=== PATIENT | female | born 1930 | race Caucasian/White ===

== ENCOUNTER → 2016-12-01 | Outpatient (CLI) | payer OTHER, MEDICAID | LOC: BHFA 13:00 | PROVIDERS: ATTEND Internal Medicine Cardiovascular Disease | DX: R00.2 Palpitations (principal) ==

== ENCOUNTER → 2016-12-22 | Outpatient (CLI) | payer OTHER, MEDICAID | LOC: BMCIMAGING 16:29 | PROVIDERS: ATTEND Internal Medicine | DX: J44.9 Chronic obstructive pulmonary disease, unspecified (principal); Q79.1 Other congenital malformations of diaphragm; J98.4 Other disorders of lung | CPT/HCPCS: G0463-PO ==

== ENCOUNTER → 2017-02-09 | Outpatient (CLI) | payer OTHER, MEDICAID | LOC: BHFA 14:00 | PROVIDERS: ATTEND Internal Medicine Cardiovascular Disease | DX: I49.3 Ventricular premature depolarization (principal) ==

== ENCOUNTER → 2017-02-10 | Outpatient (CLI) | payer OTHER, MEDICAID | LOC: BHFA 10:00 | PROVIDERS: ATTEND Internal Medicine Cardiovascular Disease | DX: R60.9 Edema, unspecified (principal); I49.3 Ventricular premature depolarization ==

== ENCOUNTER → 2017-02-15 | Outpatient (CLI) | payer OTHER, MEDICAID | LOC: FIMAGING 14:29 | PROVIDERS: ATTEND Internal Medicine Cardiovascular Disease | DX: M71.22 Synovial cyst of popliteal space [Baker], left knee (principal); M71.21 Synovial cyst of popliteal space [Baker], right knee ==

== ENCOUNTER → 2017-02-22 | Outpatient (CLI) | payer OTHER, MEDICAID | LOC: FIMAGING 14:57 | PROVIDERS: ATTEND Internal Medicine | DX: Z12.31 Encounter for screening mammogram for malignant neoplasm of breast (principal); Z80.3 Family history of malignant neoplasm of breast | CPT/HCPCS: G0202 ==

== ENCOUNTER → 2017-02-24 | Outpatient (CLI) | payer OTHER, MEDICAID ==
[~2017-02-24] MED LIST: IOPAMIDOL (ISOVUE-300) 100 ML BTL ONE
== END ==
LOC: FIMAGING 16:23
PROVIDERS: ATTEND Physician Assistant Medical
DX: R31.0 Gross hematuria (principal); N28.1 Cyst of kidney, acquired; K83.8 Other specified diseases of biliary tract
CPT/HCPCS: 74178; Q9967

== ENCOUNTER 2017-09-15 13:09 | Day surgery (SDC) | payer OTHER, MEDICAID ==
[2017-09-15] MEDS ORDERED: GLUCAGON HCL 1 MG VIAL IVP ONE (13:29)
--- NOTE | 2017-09-15 13:32 | EDPHY ---
H & P Time Seen by Provider: 09/15/17 13:24 HPI/ROS: CHIEF COMPLAINT: Chicken in the throat HISTORY OF PRESENT ILLNESS: History of previous esophageal stricture with dilatation last 11/03/[address] Jordan. Patient was eating chicken today at 11: 00 a.m. And felt it get stuck in her throat. She reports dyspnea under cricoid as the area of sensation of foreign body. She can't swallow her saliva. Not associated with coughing or shortness of breath. Unable to swallow at all. Symptoms severe. REVIEW OF SYSTEMS: Eye: no change in vision ENT: no sore throat Cardiac: no chest pain or syncope Pulmonary: no cough or SOB Abdomen: no vomiting, diarrhea, abdominal pain Musculoskeletal: Chronic back pain unchanged Skin: no rash Neuro: no headache Constitutional: no fever : no urinary symptoms A comprehensive 10 point review of systems is otherwise negative aside from elements mentioned in the history of present illness. PAST MEDICAL HISTORY: Previous esophageal stricture, hiatal hernia, abdominal hernia, COPD, spinal stenosis with chronic back pain. Social history: Here with her son General Appearance: Alert and conversant, cooperative. Eyes: No scleral icterus. ENT, Mouth: Pharynx normal, no trismus, no stridor or drooling, normal mucous membranes. Respiratory: Normal respiratory effort, breath sounds equal, lungs are clear to auscultation. No wheezing. Cardiovascular: Regular rate and rhythm. Gastrointestinal: Abdomen is soft and non tender. Neurological: Alert, stands the side of the bed, cooperative with the examination. Skin: No urticaria. Musculoskeletal: Normal range of motion of the neck. Psychiatric: Not agitated. Emergency Department course/MDM: Recurrent esophageal foreign body with previous stricture dilatation. 0.5 mg IV glucagon, GI consultation will likely need endoscopy today. Smoking Status: Never smoked Constitutional: Initial Vital Signs Temperature (C) 36.7 C 09/15/17 13:11 Heart Rate 92 09/15/17 13:11 Respiratory Rate 18 09/15/17 13:11 Blood Pressure 168/88 H 09/15/17 13:11 O2 Sat (%) 94 09/15/17 13:11 O2 Delivery Mode Nasal Cannula O2 (L/minute) 2 Allergies/Adverse Reactions: No Known Allergies Allergy (Verified 09/15/17 13:11) Home Medications: Medication Instructions Recorded Bp Med 09/15/17 Pain Pill 09/15/17 Medical Decision Making Differential Diagnosis: Differential considered including but not limited to esophageal stricture, food impaction, Boerhaave syndrome, upper GI bleed, esophagitis or GERD. Consult/Admit Bed Type: [place] [address] - Data Points Medications Given: Discontinued Medications Glucagon (Glucagon) 0.5 mg IVP EDNOW ONE Stop: 09/15/17 13:30 Last Admin: 09/15/17 14:00 Dose: 0.5 mg Departure - Departure Disposition: To OP Cath/Surgery Clinical Impression: Impacted esophageal foreign body Qualifiers: Encounter type: initial encounter Qualified Code(s): T18.108A - Unspecified foreign body in esophagus causing other injury, initial encounter Condition: Good Referrals: Virgilio Trejo MD [Primary Care Provider] - As per Instructions
[2017-09-15] MEDS ORDERED: PROPOFOL/EMULSION 500 MG/50 ML BOTTLE IV ONE (14:41)
--- NOTE | 2017-09-15 14:47 | PDANEPAE ---
ANE History of Present Illness Foreign body ANE Past Medical History - Cardiovascular History Hx Hypertension: Yes Hx Arrhythmias: Yes Hx Chest Pain: No Hx Coronary Artery / Peripheral Vascular Disease: No Hx CHF / Valvular Disease: No Hx Palpitations: No Cardiovascular History Comment: arrhythmias occasional - Pulmonary History Hx COPD: No Hx Asthma/Reactive Airway Disease: Yes Hx Recent Upper Respiratory Infection: Yes Hx Oxygen in Use at Home: Yes O2 in Use at Home (L/minute): 2 Hx Sleep Apnea: No Pulmonary History Comment: asthma - Neurologic History Hx Cerebrovascular Accident: No Hx Seizures: No Hx Dementia: No - Endocrine History Hx Diabetes: No - Renal History Hx Renal Disorders: Yes Renal History Comment: hx kidney stones - Liver History Hx Hepatic Disorders: No - Neurological & Psychiatric Hx Hx Neurological and Psychiatric Disorders: No - Cancer History Hx Cancer: No - Congenital Disorder History Hx Congenital Disorders: No - GI History Gastrointestinal History Comment: hx blockage bile duct - Other Health History Other Health History: dentures. missing teeth uper and lower - Chronic Pain History Chronic Pain: Yes - Surgical History Prior Surgeries: steriod injection lower spine 08/2015. incarerated bowel 2014. [id number]. ercps x3 ANE Review of Systems Review of Systems: ANE Patient History - Allergies Allergies/Adverse Reactions: No Known Allergies Allergy (Verified 09/15/17 13:11) - Home Medications Home Medications: Bp Med 09/15/17 [Last Taken Unknown] Pain Pill 09/15/17 [Last Taken Unknown] - NPO status NPO Since - Liquids (Date): 09/15/17 NPO Since - Liquids (Time): 11:00 NPO Since - Solids (Date): 09/15/17 NPO Since - Solids (Time): 11:00 - Smoking Hx Smoking Status: Never smoked ANE Labs/Vital Signs - Vital Signs Blood Pressure: 185/80 Heart Rate: 74 Respiratory Rate: 16 O2 Sat (%): 99 Height: 152.4 cm Weight: 56 kg ANE Physical Exam - Airway Neck exam: FROM Mallampati Score: Class 2 Mouth exam: poor dentition, dentures - Pulmonary Pulmonary: clear to auscultation - Cardiovascular Cardiovascular: regular rate and rhythym - ASA Status ASA Status: III ANE Anesthesia Plan Anesthesia Plan: general endotracheal anesthesia
[2017-09-15] MEDS ORDERED: fentaNYL 100 MCG/2 ML INJ IVP PRN (14:54)
[2017-09-15] MEDS ORDERED: LABETALOL HCL 5 MG/ML 20 ML MDV IVP PRN (14:54)
[2017-09-15] MEDS ORDERED: DEXAMETHASONE 4 MG/ML VIAL IVP PRN (14:54)
[2017-09-15] MEDS ORDERED: NALOXONE HCL 0.4 MG/ML INJ IVP PRN (14:54)
[2017-09-15] MEDS ORDERED: ALBUTEROL 3 ML DEYVIAL IH PRN (14:54)
[2017-09-15] MEDS ORDERED: ONDANSETRON 4 MG/2 ML VIAL IVP PRN (14:54)
[2017-09-15] MEDS ORDERED: LABETALOL HCL 5 MG/ML 20 ML MDV ONE (15:06)
--- NOTE | 2017-09-15 15:16 | POSTANESTH ---
Post Anesthetic Evaluation Cardiovascular Status: Normal, Stable Respiratory Status: Normal, Stable Level of Consciousness/Mental Status: Alert and Oriented Pain Control: Adequate, Prn Tx Ordered Nausea/Vomiting Control: Adequate, Prn Tx Ordered Complications Possibly Related to Anesthesia: None Noted
--- NOTE | 2017-09-15 15:20 | GIREPORT ---
[facility] - Endoscopy Department Patient Name: Gayathri Rowell Procedure Date: 09/15/2017 2:21 PM Patient Type: Emergency Department Attending MD/ ER Physician: Clayton Camp MD Procedure: Upper GI endoscopy Indications: Dysphagia, Foreign body in the esophagus Providers: Clayton Camp MD Medicines: Sedation Administered by an Anesthesia Professional Complications: No immediate complications. Description of Procedure: After obtaining informed consent, the endoscope was passed under direct vision. Throughout the procedure, the patient's blood pressure, pulse, and oxygen saturations were monitored continuously. The Endoscope was intro duced through the mouth, and advanced to the fourth part of duodenum. The [facility] er GI endoscopy was accomplished without difficulty. The patient tolerated th e procedure well. Findings: Food was found in the upper third of the esophagus. Removal of food was accomplished. Plaques were found in the upper third of the esophagus. Biopsies were t aken with a cold forceps for histology. A small amount of food (residue) was found in the gastric body. The examined duodenum was normal. A medium-sized hiatal hernia was present. Estimated Blood Loss: Estimated blood loss: none. Post Op Diagnosis: - Food in the upper third of the esophagus. Removal was successful. - Plaque/Nodularity in the upper third of the esophagus. Biopsied. - A small amount of food (residue) in the stomach. - Normal examined duodenum. - Medium-sized hiatal hernia. Recommendation: - Written discharge instructions were provided to the patient. - The signs and symptoms of potential delayed complications were discus sed with the patient. - Patient has a contact number available for emergencies. - Return to normal activities tomorrow. - Resume previous diet. - Continue present medications. - Repeat upper endoscopy in 4 weeks for retreatment/dilation. - The findings and recommendations were discussed with the patient. - Await pathology results. Attending Participation: I personally performed the entire procedure. Clayton Camp MD Clayton Camp MD 09/15/2017 3:19:58 PM This report has been signed electronicallyDaus Conrado MD Number of Addenda: 0 Note Initiated On: 09/15/2017 2:21 PM [email or web address]
[2017-09-15 15:21] VITALS: PULSE 77
[2017-09-15 15:31] VITALS: RESP 19
--- NOTE | 2017-09-15 15:37 | GCON ---
[f rep st] CONSULTATION OUTPATIENT CONSULTATION REFERRING PHYSICIAN: Emil Jeong MD REASON FOR CONSULTATION: Food impaction. HISTORY OF PRESENT ILLNESS: Briefly, the patient is a pleasant 87-year-old female known to our service from previous evaluations. She has had multiple prior visits in the GI service related to difficulty swallowing, hiatal hernia, and esophageal stricture. She reports she was in her usual state of health until today when she ate some chicken around her noontime meal. This chicken was unable to pass. She has been spitting up saliva since that time. She presented to the emergency room. She reports no fever, chills or sweats. She has had no shortness of breath or pain. She believes this is very similar to prior episodes of the same complaint. Typically, these symptoms can resolve spontaneously. This one has not. ALLERGIES: None. MEDICATIONS: Outpatient medicines include a blood pressure pill, as well as pain medicine. PAST MEDICAL HISTORY: Includes reflux and a hiatal hernia, hypertension, asthma , prior history of common bile duct stricture, cholecystitis. FAMILY HISTORY: Negative for GI malignancies. SOCIAL HISTORY: She is originally from [place]. She does not drink alcohol. She does not smoke. REVIEW OF SYSTEMS: A complete 10-point was reviewed with the patient. The pertinent positives and negatives are detailed in the History of Present Illness. PHYSICAL EXAM: GENERAL: This is an elderly female in no apparent distress. HEENT: Her pupils are equal, round, reactive to light and accommodation. Sclerae nonicteric. Oropharynx is clear. NECK: Supple, without lymphadenopathy. HEART: Regular, without murmur. ABDOMEN: Soft, nontender, with normoactive bowel sounds. EXTREMITIES: Free of cyanosis, clubbing, edema. NEURO: Grossly nonfocal. SKIN: Warm and dry. MUSCULOSKELETAL: Her joints show no arthritis. LABORATORY DATA: There is no laboratory testing to review. IMPRESSION/RECOMMENDATIONS: The patient is having recurrence of foreign body esophageal obstruction related to food. She has known esophageal stricturing, as well as hiatal hernia. It is likely a manifestation of one of these known physical abnormalities that has led to her symptoms. The differential could also include reflux, cancer, ulcer, etc. In order to relieve her foreign body obstruction and resolve the differential, I recommend she undergo endoscopy. Due to her underlying COPD and advanced age, she is at increased risk of conscious sedation. We will engage the help of anesthesia to help with sedation. /[id number]/MODL MTDD
[2017-09-15 15:56] VITALS: BP 152/73; TEMP 97.9; O2SAT 100
== END 2017-09-15 16:02 | disposition home or self-care (01) ==
LOC: FSGY 14:32
PROVIDERS: ATTEND Internal Medicine Gastroenterology
PROC: 0DC18ZZ Extirpation of Matter from Upper Esophagus, Via Natural or Artificial Opening Endoscopic (ICD-10-PCS; principal; 2017-09-15 14:45)
PROC: 0DB18ZX Excision of Upper Esophagus, Via Natural or Artificial Opening Endoscopic, Diagnostic (ICD-10-PCS; principal; 2017-09-15 14:45)
DX: T18.128A Food in esophagus causing other injury, initial encounter (principal); I10 Essential (primary) hypertension; J45.909 Unspecified asthma, uncomplicated
CPT/HCPCS: 96374; J1610; J2704

== ENCOUNTER → 2017-09-21 | Outpatient (CLI) | payer OTHER, MEDICAID | LOC: BHFA 11:30 | PROVIDERS: ATTEND Internal Medicine Cardiovascular Disease | DX: I49.3 Ventricular premature depolarization (principal) ==

== ENCOUNTER → 2017-10-24 | Outpatient (CLI) | payer OTHER, MEDICAID | LOC: BMCIMAGING 16:26 | PROVIDERS: ATTEND Internal Medicine Pulmonary Disease | DX: J98.6 Disorders of diaphragm (principal); R06.00 Dyspnea, unspecified; K44.9 Diaphragmatic hernia without obstruction or gangrene ==

== ENCOUNTER → 2018-02-23 | Outpatient (CLI) | payer OTHER, MEDICAID | LOC: FIMAGING 15:50 | PROVIDERS: ATTEND Internal Medicine | DX: Z12.31 Encounter for screening mammogram for malignant neoplasm of breast (principal) ==

== ENCOUNTER → 2018-06-02 | Outpatient (CLI) | payer OTHER, MEDICAID | LOC: BHFA 15:30 | PROVIDERS: ATTEND Internal Medicine Cardiovascular Disease | DX: I73.9 Peripheral vascular disease, unspecified (principal) ==

== ENCOUNTER → 2018-06-15 | Outpatient (CLI) | payer OTHER, MEDICAID | END | disposition home or self-care (01) | LOC: FIMAGING 10:29 | PROVIDERS: ATTEND Internal Medicine | DX: R10.12 Left upper quadrant pain (principal); R10.11 Right upper quadrant pain; Z90.49 Acquired absence of other specified parts of digestive tract ==